=== PATIENT | male | born 1950 | race Caucasian/White ===

== ENCOUNTER → 2017-03-11 | Outpatient (CLI) | payer MEDICARE ==
--- NOTE | 2017-03-11 12:22 | Diagnostic Imaging Report ---
PROCEDURE: US THYROID COMPARISON: None. INDICATIONS:THYROID NODULE TECHNIQUE: Transverse and longitudinal carrera-scale sonographic images of the thyroid were obtained and supplemented with color doppler. Measurements will be given in the AP, transverse, and craniocaudal dimensions. FINDINGS: Right thyroid lobe: Measures 2.2 x 1.3 x 3.9 cm Left thyroid lobe: Measures 2.0 x 1.7 x 4.2 cm Isthmus: Measures 0.3 cm Echotexture: Normal. Vascularity: Normal. Nodules: * Solid, well-defined, isoechoic to mildly hypoechoic nodule in the mid right lobe measures 1.1 x 1.1 x 1.4 cm. No calcifications. * Solid, well-defined, isoechoic nodule in the mid left lobe measures 1.8 x 1.4 x 2.1 cm. * Cystic and possibly solid nodule in the lower pole of the left lobe contains a comet tail artifact and is at the inferior aspect of the dominant nodule. The solid component is isoechoic. This measures 5 x 8 mm in the axial plane. CONCLUSION: 1. Solid nodule in the right lobe (TI-RADS 4). This is at the lower limits of size for FNA. Surveillance can be performed in 1, 2, 3 and 5 years. 2. Solid nodule in the left lobe (TI-RADS 4). FNA is recommended based on [id number]-hguz-kfow shape. 3. Cystic and solid nodule in the left lobe (TI-RADS 3). Dictated by: Chris Morley M.D. on 03/11/2017 at 12:30 Electronically approved by: Chris Morley M.D. on 03/11/2017 at 12:30
== END ==
LOC: US 08:27
PROVIDERS: ATTEND Family Medicine
DX: E04.1 Nontoxic single thyroid nodule (principal)
CPT/HCPCS: 76536

== ENCOUNTER → 2017-06-03 | Outpatient (CLI) | payer MEDICARE | LOC: CARD 08:31 | PROVIDERS: ATTEND Family Medicine | DX: R09.89 Other specified symptoms and signs involving the circulatory and respiratory systems (principal) | CPT/HCPCS: 93880 ==

== ENCOUNTER → 2017-08-05 | Outpatient (CLI) | payer MEDICARE ==
[~2017-08-05] VITALS: Ht 180.3 cm; Wt 67.6 kg
[~2017-08-05] MED LIST: ASPIR 8181 MG; ATORVASTATIN CA10 MG PO; CARVEDILOL3.125 MG PO; CO Q-10100 MG; IOPAMIDOL 300 MG/ML 15ML VIAL IT ONE; LOSARTAN POTASS25 MG; OMEPRAZOLE40 MG; RANITIDINE HCL300 M1; TAMSULOSIN HCL0.4 MG; TIZANIDINE HCL4 M1
--- NOTE | 2017-08-05 11:26 | Diagnostic Imaging Report ---
PROCEDURE:MYELOGRAM CERVICAL INCL INJ COMPARISON:None. INDICATIONS:DISC DISPLACEMENT, CERVICAL STENOSIS TECHNIQUE:The procedure was explained to the patient in detail including complications. After consent was obtained, the patient was transferred to the fluoroscopy suite and asked to lie in the prone position. Plain films in the PA and lateral projections were obtained and reviewed. Fluoroscopy time: 1.2 minutes Air Kerma: 32.93 mGy Procedure in detail: Medical Coordinator Pesticide Use radiographs of the lumbar spine show 5 nonrib-bearing lumbar vertebral bodies. Degenerative disc changes and facet arthropathy at L5-S1. The skin in the lower back was prepped and draped in the usual sterile fashion using chlorhexidine. A 25G needle was used to infiltrate the skin and subcutaneous soft tissues with 1% lidocaine. Under fluoroscopic guidance, a 22 G spinal needle was then advanced into the thecal sac at the L4-L5 level without complications. Once the position of the needle was verified, and clear colorless CSF fluid was visualized, 10 cc of Isovue-[id number] were injected without complications. A crosstable lateral radiograph was obtained. Following the procedure, the patient was transferred to the CT suite where a scan of the cervical region was obtained. FINDINGS: Ventral epidural filling defects at C4-5, C5-6, and C6-7 likely related to disc osteophyte complexes. CONCLUSION: Successful cervical myelogram without immediate complication. For description of cervical spine pathology refer to subsequently performed and separately reported CT scan of the cervical spine. Dictated by: Addy Troncoso M.D. on 08/05/2017 at 11:29 Electronically approved by: Addy Troncoso M.D. on 08/05/2017 at 11:29
--- NOTE | 2017-08-05 15:03 | Diagnostic Imaging Report ---
EXAMINATION: CT Myelogram of the cervical spine HISTORY: Neck pain, cervical spine stenosis, numbness in fingers and feet COMPARISON: Cervical spine CT on 02/11/2017 and cervical myelogram, same date. TECHNIQUE: Multidetector helical axial images were obtained from the foramen magnum to T1 following myelography . The images were reconstructed using bone and soft tissue algorithms and were viewed in axial, sagittal and coronal planes. For details of the injection procedure, see the report of the myelogram. Intrathecal contrast:Please see dictation of cervical spine mammogram for further detail. FINDINGS: Curvature:Straightening of the cervical lordosis which may be related to muscle spasm or positional. Vertebrae:No evidence of neoplasm, infection, or fracture. Soft tissues: Unremarkable. Spinal cord:Normal density. Minimal indentation of the ventral cord from C4 to C7. Degenerative changes: C1-C2: Unremarkable. C2-C3: Unremarkable. C3-C4: Minimal disc bulge without canal or foraminal stenoses C4-C5: Disc osteophyte complex formation, bilateral uncovertebral and facet arthrosis. Moderate spinal canal and foraminal stenoses. Minimal flattening of the ventral spinal cord.. C5-C6: Disc osteophyte complex formation, bilateral uncovertebral and facet arthrosis. Moderate spinal canal and [id number] bilateral foraminal stenoses. Minimal flattening of the ventral spinal cord. C6-C7: Disc osteophyte complex formation asymmetric to the left, uncovertebral and facet arthrosis. Moderate spinal canal and mild bilateral foraminal stenoses. C7-T1: Unremarkable. IMPRESSION: 1. Moderate degenerative spinal canal and foraminal stenosis at C4-C5. 2. Moderate degenerative spinal canal and moderate to severe foraminal stenosis at C5-C6. 3. Moderate degenerative spinal canal and mild bilateral foraminal stenosis at C6-C7. 4. Minimal ventral indentation of the spinal cord from C4 to C6 as detailed above. Signed by: Dr. Rima Cornejo M.D. on 08/05/2017 3:00 PM
== END ==
LOC: DX 08:27
PROVIDERS: ATTEND Specialist
DX: M48.02 Spinal stenosis, cervical region (principal); M50.20 Other cervical disc displacement, unspecified cervical region; R29.2 Abnormal reflex
CPT/HCPCS: 72126; Q9967; 62302

== ENCOUNTER → 2018-10-04 | Outpatient (RCR) | payer MEDICARE, OTHER ==
[~2018-10-04] MED LIST changes: -IOPAMIDOL 300 MG/ML 15ML VIAL IT ONE
== END ==
LOC: PT 09-04 09:56
PROVIDERS: ATTEND Internal Medicine
DX: M48.02 Spinal stenosis, cervical region (principal); M62.81 Muscle weakness (generalized)
CPT/HCPCS: 97139